=== PATIENT | female | born 1990 | race Two or more races ===

== ENCOUNTER 2020-07-12 21:05 | Emergency (ER) | payer MEDICAID ==
[~2020-07-12] VITALS: Ht 157.5 cm; Wt 104.3 kg
--- NOTE | 2020-07-12 21:08 | NUR ---
ED Nurse Note: ERMD at bedside
[2020-07-12 21:09] VITALS: BP 128/86
--- NOTE | 2020-07-12 21:09 | NUR ---
ED Nurse Note: pt ambulated into ed from home co sob with ne relief from rescue inhaler. pt aao x 4, ambulates with steady gait, vss. pt has audible wheezes. pt placed in room on 2l O2 for spO2 of 99%. awaiting ermd and further orders. Will continue to monitor.
--- NOTE | 2020-07-12 21:28 | Emergency Room Report ---
History of Present Illness General Chief Complaint: Dyspnea/Respdistress Source: Patient Present Illness HPI Disclaimer: Please note that this report is being documented using [employer] technology. This can lead to erroneous entry secondary to incorrect interpretation by the dictating instrument. HPI: 29-year-old female with history of asthma presents for evaluation of cough and shortness of breath. Symptoms began yesterday. She reports difficulty breathing, wheezing, nonproductive cough, sore throat and runny nose. Denies fever but reports fatigue and body aches. Has not been tested for COVID-19 but has an appointment to do so tomorrow. Patient takes fluticasone and albuterol. Denies nausea, vomiting, diarrhea, skin rash. Denies sick contacts. Has been using her albuterol inhaler all day without significant relief. PMH: Asthma PSH: Reviewed Allergies: Reviewed Social Hx: Reviewed Allergies: Coded Allergies: No Known Allergies (Unverified , 07/12/20) COVID-19 Screening Contact w/high risk pt: No Experienced COVID-19 symptoms?: Yes COVID-19 Testing performed CHANNEL PROGRAM MANAGER: No Patient History Last Menstrual Period: 07/05/2020 Now: No : 2 Para: 2 Nursing Documentation-PMH Past Medical History: No History, Except For Hx Asthma: Yes Review of Systems All Other Systems: negative except mentioned in HPI Physical Exam Vital Signs Date Time Temp Pulse Resp B/P (MAP) Pulse Ox O2 Delivery O2 Flow Rate FiO2 07/12/20 21:06 97.9 107 22 128/86 (100) 93 Room Air General: Awake and alert, mildly uncomfortable. Speaking in full sentences. HEENT: NC/AT. EOMI. Cardiovascular: Tachycardic Resp: Increased work of breathing. Inspiratory and aspiratory wheezes bilaterally. Decreased aeration. 93% on room air. Skin: Intact. No abrasions, laceration or rash over the exposed skin MSK: Normal tone and bulk. Moving all extremities. No obvious deformity. Neuro: Awake and alert. Mentating appropriately. Medical Decision Making Diagnostic Impression: Primary Impression: Asthma exacerbation Additional Impression: Suspected COVID-19 virus infection ER Course 29-year-old female presents for evaluation shortness of breath and URI symptoms. Differential includes was not limited to asthma exacerbation, COPD exacerbation, pneumonia, bronchitis, COVID-19 infection, influenza among others. Most consistent with acute asthma exacerbation. Patient given systemic steroid s and breathing treatments. She is feeling better after breathing treatments. Wheezing resolved. Will start on steroids. Chest x-ray unremarkable. She is scheduled to have COVID-19 testing tomorrow. Instructed her on quarantine and hygiene procedures. Stable for outpatient follow-up. Chest X-Ray Diagnostic Results Chest X-Ray Diagnostic Results : Chest X-Ray Ordered: Yes # of Views/Limited/Complete: 1 View Indication: Shortness of Breath Interpretation: no consolidation, no effusion, no pneumothorax Impression: No acute disease Electronically Signed by: Electronically signed by Dr. Thiago Brito MD Last Vital Signs Date Time Temp Pulse Resp B/P (MAP) Pulse Ox O2 Delivery O2 Flow Rate FiO2 07/12/20 21:06 97.9 107 22 128/86 (100) 93 Room Air Disposition: HOME, SELF-CARE Condition: Stable Scripts Acetaminophen* (TYLENOL EXTRA STRENGTH*) 500 Mg Tablet 500 MG ORAL Q8H PRN for Prn Headache/Temp > 101, #30 TAB 0 Refills Prov: Thiago Brito MD 07/12/20 Prednisone* (PREDNISONE*) 20 Mg Tablet 40 MG ORAL DAILY for 4 Days, #8 TAB Prov: Thiago Brito MD 07/12/20 Thiago Brito MD Jul 12, 2020 21:28
--- NOTE | 2020-07-12 21:30 | NUR ---
ED Nurse Note: RT AT BEDSIDE FOR BREATHING TX
[2020-07-12] MEDS: Albuterol/Ipratropium 3ml neb HHN SCH ×3 (21:37→22:02)
--- NOTE | 2020-07-12 21:45 | NUR ---
ED Nurse Note: ERMD at bedside
[2020-07-12] MEDS ORDERED: PREDNISONE20 MG ORAL (22:11)
[2020-07-12] MEDS ORDERED: TYLENOL EXTRA500 MG ORAL (22:11)
[2020-07-12 22:20] VITALS: BP 135/82
--- NOTE | 2020-07-12 22:20 | NUR ---
ER DISCHARGE NOTE: Patient is cleared to be discharged home per ERMD, pt is aox4, 98% on room air, with stable vital signs. pt was given dc and prescription instructions, pt was able to verbalize understanding, pt id band removed without complications. pt is able to ambulate with steady gait. pt took all belongings.
--- NOTE | 2020-07-13 19:06 | Diagnostic Imaging Report ---
Indication: Shortness of breath Technique: One view of the chest Comparison: none Findings: Lungs and pleural spaces are clear. Heart size is normal. Impression: No acute process
== END 2020-07-12 22:20 | disposition home or self-care (01) ==
LOC: EMR 21:45
DX: J45.901 Unspecified asthma with (acute) exacerbation (principal); R05 Cough; R06.02 Shortness of breath
CPT/HCPCS: 71045; 94640; J7512; Z7502; 99283; J7620